=== PATIENT | female | born 1980 | race African-American/Black ===

== ENCOUNTER 2016-07-26 19:43 | Emergency (ER) | payer OTHER ==
[2016-07-26 19:44] VITALS: BP 132/83; PULSE 132; RESP 16; TEMP 99.1; O2SAT 98
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
[2016-07-26] MEDS ORDERED: ORPHENADRINE INJ 60 MG/2 ML AMP IM ONE (21:15)
[2016-07-26] MEDS ORDERED: DEXAMETHASONE SOD PHOS 20 MG/5 ML VIAL IM ONE (21:15)
[2016-07-26] MEDS ORDERED: KETOROLAC TROMETHAMINE 60 MG/2 ML (IM) VIAL IM ONE (21:15)
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
--- NOTE | 2016-07-26 21:53 | RADRPT ---
EXAM DATE/TIME: 07/26/2016 21:38 [facility] COMPARISON: No previous studies available for comparison. INDICATIONS : Shortness of breath. MEDICAL HISTORY : None. SURGICAL HISTORY : None. ENCOUNTER: Initial ACUITY: 2 days PAIN SCORE: 0/10 LOCATION: Bilateral chest FINDINGS: PA and lateral views of the chest demonstrate the lungs to be symmetrically aerated without evidence of mass, infiltrate or effusion. The cardiomediastinal contours are unremarkable. Osseous structure s are intact. CONCLUSION: No acute disease. Humble Maza MD on July 26, 2016 at 21:50 Board Certified Radiologist. This report was verified electronically.
[2016-07-26] MEDS ORDERED: TRAM50TA PO (22:25)
[2016-07-26] MEDS ORDERED: PRED50 PO (22:29)
[2016-07-26] MEDS ORDERED: IBUP800T23 PO (22:29)
[2016-07-26 22:41] VITALS: BP 127/82
== END 2016-07-26 22:44 | disposition home or self-care (01) ==
LOC: NEPD 19:43
DX: S39.012A Strain of muscle, fascia and tendon of lower back, initial encounter (principal); M62.838 Other muscle spasm; R06.02 Shortness of breath; V49.40XA Driver injured in collision with unspecified motor vehicles in traffic accident, initial encounter; Y93.9 Activity, unspecified; Y92.410 Unspecified street and highway as the place of occurrence of the external cause
CPT/HCPCS: 71020; 72100; 99284